=== PATIENT | female | born 1955 | race Caucasian/White ===

== ENCOUNTER 2017-10-25 18:00 | Inpatient (IN) | payer OTHER ==
[2017-10-25 18:58] LABS: ADD MAN DIFF? NO
[2017-10-25 18:59] LABS: ABNORMAL IP MESSAGE 1; BASOPHILS % 0.2 % (0.0-2.0); HEMATOCRIT 37.9 % (37.0-47.0); HEMOGLOBIN 12.5 g/dl (12.0-16.0); LYMPHOCYTES # 0.4 10^3/ul (0.8-2.9); LYMPHOCYTES % 3.2 % (15.0-51.0); MEAN CORPUSCULAR HEMOGLOBIN 31.3 pg (29.0-33.0); MEAN PLATELET VOLUME 10.2 fl (7.4-10.4); MONOCYTE # 0.6 10^3/ul (0.3-0.9); NEUTROPHIL # 10.2 10^3/ul (1.6-7.5); NEUTROPHILS % 91.2 % (39.0-77.0); PLATELET COUNT 212 10^3/UL (140-415); RED BLOOD COUNT 3.99 10^6/ul (4.20-5.40); RED CELL DISTRIBUTION WIDTH 12.2 % (11.5-14.5)
[2017-10-25 18:59] LABS: WHITE BLOOD COUNT 11.1 10^3/ul (4.8-10.8)
[2017-10-25] MEDS ORDERED: ONDANSETRON 4 MG INJ IV ×2 (19:00→20:30)
[2017-10-25 19:01] LABS: POSITIVE DIFF @See below
[2017-10-25 19:18] LABS: ALANINE AMINOTRANSFERASE 20 IU/L (13-69); ALBUMIN 4.3 g/dl (3.3-4.9); ALBUMIN/GLOBULIN RATIO 1.53; ALKALINE PHOSPHATASE 27 IU/L (42-121); ANION GAP 13 (8-16); ASPARTATE AMINO TRANSFERASE 21 IU/L (15-46); BILIRUBIN,INDIRECT 0.4 mg/dl (0-1.1); BILIRUBIN,TOTAL 0.4 mg/dl (0.2-1.3); BLOOD UREA NITROGEN 14 mg/dl (7-20); CALCIUM 8.8 mg/dl (8.4-10.2); CARBON DIOXIDE 26 mmol/L (21-31); CHLORIDE 107 mmol/L (97-110); CREATININE 0.52 mg/dl (0.44-1.00); GLUCOSE 165 mg/dl (70-220); POTASSIUM 3.6 mmol/L (3.5-5.1); SODIUM 142 mmol/L (135-144); TOTAL PROTEIN 7.1 g/dl (6.1-8.1)
[2017-10-25 19:20] LABS: INR 1.08; PARTIAL THROMBOPLASTIN TIME 23.1 Sec (25.0-35.0); PROTIME 14.1 Sec (11.9-14.9); PT RATIO 1.1
[2017-10-25] MEDS ORDERED: ACETAMINOPHEN 325 MG TAB PO ×2 (20:30)
[2017-10-25] MEDS: HEPARIN 5,000 UNIT/0.5 ML VIAL SC (21:50)
[2017-10-26] MEDS: morphine 2 MG INJ IV ×3 (02:37→11:00)
[2017-10-26 05:49] LABS: ADD MAN DIFF? NO
[2017-10-26 05:52] LABS: BASOPHILS % 0.2 % (0.0-2.0); HEMATOCRIT 37.3 % (37.0-47.0); LYMPHOCYTES % 11.7 % (15.0-51.0); MEAN CORPUSCULAR HEMOGLOBIN 30.5 pg (29.0-33.0); MEAN CORPUSCULAR HGB CONC 32.2 g/dl (32.0-37.0); MEAN CORPUSCULAR VOLUME 94.9 fl (82.0-101.0); MEAN PLATELET VOLUME 10.9 fl (7.4-10.4); MONOCYTE # 0.9 10^3/ul (0.3-0.9); MONOCYTES % 9.6 % (0.0-11.0); NEUTROPHIL # 6.9 10^3/ul (1.6-7.5); NEUTROPHILS % 78.2 % (39.0-77.0); PLATELET COUNT 188 10^3/UL (140-415); RED BLOOD COUNT 3.93 10^6/ul (4.20-5.40); RED CELL DISTRIBUTION WIDTH 12.4 % (11.5-14.5)
[2017-10-26 05:52] LABS: WHITE BLOOD COUNT 8.9 10^3/ul (4.8-10.8)
[2017-10-26 06:27] LABS: ALANINE AMINOTRANSFERASE 28 IU/L (13-69); ALBUMIN 4.1 g/dl (3.3-4.9); ALBUMIN/GLOBULIN RATIO 1.51; ALKALINE PHOSPHATASE 30 IU/L (42-121); ANION GAP 9 (8-16); ASPARTATE AMINO TRANSFERASE 23 IU/L (15-46); BILIRUBIN,INDIRECT 0.5 mg/dl (0-1.1); BILIRUBIN,TOTAL 0.5 mg/dl (0.2-1.3); BLOOD UREA NITROGEN 15 mg/dl (7-20); CALCIUM 8.6 mg/dl (8.4-10.2); CARBON DIOXIDE 28 mmol/L (21-31); CHLORIDE 109 mmol/L (97-110); CREATININE 0.45 mg/dl (0.44-1.00); GLUCOSE 111 mg/dl (70-220); POTASSIUM 3.7 mmol/L (3.5-5.1); SODIUM 142 mmol/L (135-144); TOTAL PROTEIN 6.8 g/dl (6.1-8.1)
[2017-10-26] MEDS: HEPARIN 5,000 UNIT/0.5 ML VIAL SC ×2 (08:31→20:43)
[2017-10-26] MEDS: CITALOPRAM 20 MG TAB PO (11:00)
[2017-10-26] MEDS: NAPROXEN 250 MG TAB PO ×2 (12:43→20:41)
[2017-10-26] MEDS: traZODone 50 MG TAB PO ×2 (12:43→20:39)
[2017-10-26] MEDS ORDERED: NAPROXEN 250 MG TAB PO (13:00)
[2017-10-26] MEDS: HYDROCODONE/APAP (5/325) TAB PO (15:14)
[2017-10-26] MEDS: ANASTROZOLE 1 MG TAB PO (15:27)
[2017-10-26] MEDS ORDERED: HALOPERIDOL 5 MG INJ IV (18:00)
[2017-10-26] MEDS: HALOPERIDOL 5 MG INJ IM (19:04)
[2017-10-26] MEDS ORDERED: morphine LIQ (10 MG/5 ML) CUP PO (23:30)
[2017-10-27 06:17] LABS: ADD MAN DIFF? NO
[2017-10-27 06:21] LABS: BASOPHILS % 0.3 % (0.0-2.0); EOSINOPHILS % 0.1 % (0.0-7.0); HEMATOCRIT 34.1 % (37.0-47.0); LYMPHOCYTES # 1.2 10^3/ul (0.8-2.9); LYMPHOCYTES % 16.2 % (15.0-51.0); MEAN CORPUSCULAR HEMOGLOBIN 30.1 pg (29.0-33.0); MEAN CORPUSCULAR HGB CONC 32.3 g/dl (32.0-37.0); MEAN CORPUSCULAR VOLUME 93.2 fl (82.0-101.0); MONOCYTE # 0.7 10^3/ul (0.3-0.9); MONOCYTES % 9.6 % (0.0-11.0); NEUTROPHIL # 5.3 10^3/ul (1.6-7.5); NEUTROPHILS % 73.4 % (39.0-77.0); PLATELET COUNT 159 10^3/UL (140-415); RED BLOOD COUNT 3.66 10^6/ul (4.20-5.40); RED CELL DISTRIBUTION WIDTH 12.4 % (11.5-14.5)
[2017-10-27 06:21] LABS: WHITE BLOOD COUNT 7.2 10^3/ul (4.8-10.8)
[2017-10-27 06:48] LABS: PHOSPHORUS 2.8 mg/dl (2.5-4.9)
[2017-10-27 06:48] LABS: MAGNESIUM 2.2 mg/dl (1.7-2.5)
[2017-10-27 06:52] LABS: ALANINE AMINOTRANSFERASE 21 IU/L (13-69); ALBUMIN 3.9 g/dl (3.3-4.9); ALBUMIN/GLOBULIN RATIO 1.44; ALKALINE PHOSPHATASE 33 IU/L (42-121); ANION GAP 9 (8-16); ASPARTATE AMINO TRANSFERASE 31 IU/L (15-46); BILIRUBIN,INDIRECT 0.6 mg/dl (0-1.1); BILIRUBIN,TOTAL 0.6 mg/dl (0.2-1.3); BLOOD UREA NITROGEN 19 mg/dl (7-20); CALCIUM 8.6 mg/dl (8.4-10.2); CARBON DIOXIDE 28 mmol/L (21-31); CHLORIDE 107 mmol/L (97-110); CREATININE 0.54 mg/dl (0.44-1.00); GLUCOSE 101 mg/dl (70-220); POTASSIUM 3.9 mmol/L (3.5-5.1); SODIUM 140 mmol/L (135-144); TOTAL PROTEIN 6.6 g/dl (6.1-8.1)
[2017-10-27] MEDS ORDERED: ONDANSETRON 4 MG INJ (07:00)
[2017-10-27] MEDS ORDERED: METOCLOPRAMIDE 10 MG INJ (07:00)
[2017-10-27] MEDS ORDERED: CEFAZOLIN 1 GM INJ (07:00)
[2017-10-27] MEDS: NAPROXEN 250 MG TAB PO ×3 (08:17→21:00)
[2017-10-27] MEDS: CALCIUM/VITAMIN D (500/200) TAB PO (08:18)
[2017-10-27] MEDS: CITALOPRAM 20 MG TAB PO (08:18)
[2017-10-27] MEDS: traZODone 50 MG TAB PO ×3 (08:18→21:00)
[2017-10-27] MEDS: ANASTROZOLE 1 MG TAB PO (08:24)
[2017-10-27] MEDS: HEPARIN 5,000 UNIT/0.5 ML VIAL SC ×2 (08:24→21:00)
[2017-10-27] MEDS: SOD CHLORIDE 0.9% 1,000 ML IV (17:41)
[2017-10-27] MEDS ORDERED: FENTAnyl 50 MCG/ML VIAL (19:16)
[2017-10-27] MEDS ORDERED: LIDOCAINE 2% (SDV) 5 ML INJ (19:17)
[2017-10-27] MEDS ORDERED: MIDAZOLAM 1 MG/ML 2 ML INJ (19:17)
[2017-10-27] MEDS ORDERED: PROPOFOL 20 ML (19:17)
[2017-10-27] MEDS ORDERED: ACETAMINOPHEN 1000MG/100ML IV 100 ML (19:18)
[2017-10-27] MEDS ORDERED: DEXAMETHASONE 4 MG/ML 1 ML INJ (19:21)
[2017-10-27] MEDS ORDERED: hydrALAzine 20 MG INJ IV (20:00)
[2017-10-27] MEDS ORDERED: DIPHENHYDRAMINE 50 MG INJ IV ×2 (20:00→22:00)
[2017-10-27] MEDS ORDERED: HYDROmorphONE 1 MG/5 ML IV SYRINGE IV ×3 (20:00)
[2017-10-27] MEDS ORDERED: FENTAnyl 50 MCG/ML VIAL IV ×2 (20:00)
[2017-10-27] MEDS ORDERED: LABETALOL HCL 20MG INJ IV (20:00)
[2017-10-27] MEDS ORDERED: ONDANSETRON 4 MG INJ IV ×2 (20:00→22:00)
[2017-10-27] MEDS ORDERED: IPRATROPIUM (NEB) 0.5 MG/2.5 ML AMP HHN (20:00)
[2017-10-27] MEDS ORDERED: morphine SULFATE/PF (10 MG/10 ML) INJ (20:44)
[2017-10-27] MEDS ORDERED: BUPIVACAINE 0.75%/DEXT (SPINAL) 2 ML INJ (20:44)
[2017-10-27] MEDS ORDERED: ZOLPIDEM 5 MG TAB PO (22:00)
[2017-10-27] MEDS ORDERED: HYDROmorphONE 0.5 MG/0.5 ML SYG IV ×2 (22:00)
[2017-10-27] MEDS ORDERED: NALOXONE (0.4 MG/ML) INJ IV (22:00)
[2017-10-27] MEDS: POLYMYXIN/BACITRACIN 1L IRRIG (22:11)
[2017-10-27] MEDS ORDERED: HYDROCODONE/APAP (5/325) TAB PO (23:30)
[2017-10-27] MEDS ORDERED: morphine 2 MG INJ IV (23:30)
[2017-10-27] MEDS ORDERED: NACL 0.9% 3 ML SYG IV (23:30)
[2017-10-27 23:50] LABS: ADD MAN DIFF? NO
[2017-10-27 23:56] LABS: WHITE BLOOD COUNT 7.3 10^3/ul (4.8-10.8)
[2017-10-27 23:56] LABS: BASOPHILS % 0.1 % (0.0-2.0); EOSINOPHILS % 0.1 % (0.0-7.0); HEMATOCRIT 30.8 % (37.0-47.0); HEMOGLOBIN 10.1 g/dl (12.0-16.0); LYMPHOCYTES # 0.8 10^3/ul (0.8-2.9); LYMPHOCYTES % 10.3 % (15.0-51.0); MEAN CORPUSCULAR HGB CONC 32.8 g/dl (32.0-37.0); MEAN CORPUSCULAR VOLUME 97.5 fl (82.0-101.0); MEAN PLATELET VOLUME 10.3 fl (7.4-10.4); MONOCYTE # 0.4 10^3/ul (0.3-0.9); MONOCYTES % 5.1 % (0.0-11.0); NEUTROPHIL # 6.1 10^3/ul (1.6-7.5); PLATELET COUNT 140 10^3/UL (140-415); RED BLOOD COUNT 3.16 10^6/ul (4.20-5.40); RED CELL DISTRIBUTION WIDTH 12.2 % (11.5-14.5)
[2017-10-28] MEDS: DEXTROSE 5%-LR 1,000 ML IV ×2 (00:35→11:46)
[2017-10-28] MEDS: SOD CHLORIDE 0.9% 1,000 ML IV ×3 (03:30→23:30)
[2017-10-28 06:41] LABS: ADD MAN DIFF? NO
[2017-10-28 06:44] LABS: ABNORMAL IP MESSAGE 1; BASOPHILS % 0.1 % (0.0-2.0); HEMATOCRIT 29.2 % (37.0-47.0); HEMOGLOBIN 9.5 g/dl (12.0-16.0); LYMPHOCYTES # 0.2 10^3/ul (0.8-2.9); LYMPHOCYTES % 2.2 % (15.0-51.0); MEAN CORPUSCULAR HEMOGLOBIN 30.7 pg (29.0-33.0); MEAN CORPUSCULAR HGB CONC 32.5 g/dl (32.0-37.0); MEAN CORPUSCULAR VOLUME 94.5 fl (82.0-101.0); MEAN PLATELET VOLUME 10.9 fl (7.4-10.4); MONOCYTE # 0.5 10^3/ul (0.3-0.9); MONOCYTES % 6.5 % (0.0-11.0); NEUTROPHIL # 6.3 10^3/ul (1.6-7.5); NEUTROPHILS % 90.8 % (39.0-77.0); PLATELET COUNT 154 10^3/UL (140-415); RED BLOOD COUNT 3.09 10^6/ul (4.20-5.40)
[2017-10-28 06:54] LABS: POSITIVE DIFF @See below
[2017-10-28 07:15] LABS: ANION GAP 9 (8-16); BLOOD UREA NITROGEN 16 mg/dl (7-20); CALCIUM 8.5 mg/dl (8.4-10.2); CARBON DIOXIDE 27 mmol/L (21-31); CHLORIDE 107 mmol/L (97-110); CREATININE 0.46 mg/dl (0.44-1.00); GLUCOSE 175 mg/dl (70-220); POTASSIUM 3.6 mmol/L (3.5-5.1); SODIUM 139 mmol/L (135-144)
[2017-10-28 07:23] LABS: PHOSPHORUS 2.8 mg/dl (2.5-4.9)
[2017-10-28 07:23] LABS: MAGNESIUM 1.6 mg/dl (1.7-2.5)
[2017-10-28] MEDS: CEFAZOLIN 1 GM/50 ML (PMX) 50 ML IVPB ×3 (08:24→15:26)
[2017-10-28] MEDS: traZODone 50 MG TAB PO ×3 (08:25→20:53)
[2017-10-28] MEDS: ENOXAPARIN 40 MG/0.4 ML SYG SC (08:25)
[2017-10-28] MEDS: HEPARIN 5,000 UNIT/0.5 ML VIAL SC (08:25)
[2017-10-28] MEDS: NAPROXEN 250 MG TAB PO ×3 (08:25→20:53)
[2017-10-28] MEDS: CITALOPRAM 20 MG TAB PO (08:25)
[2017-10-28] MEDS: CALCIUM/VITAMIN D (500/200) TAB PO (08:25)
[2017-10-28] MEDS: ANASTROZOLE 1 MG TAB PO (08:32)
[2017-10-28] MEDS: MAGNESIUM SULFATE 2 GM/50 ML 50 ML IVPB (16:17)
[2017-10-29] MEDS: SOD CHLORIDE 0.9% 1,000 ML IV ×2 (01:21→10:52)
[2017-10-29 05:26] LABS: ADD MAN DIFF? NO
[2017-10-29 05:27] LABS: WHITE BLOOD COUNT 4.7 10^3/ul (4.8-10.8)
[2017-10-29 05:27] LABS: BASOPHILS % 0.4 % (0.0-2.0); EOSINOPHILS % 0.6 % (0.0-7.0); HEMATOCRIT 27.2 % (37.0-47.0); HEMOGLOBIN 8.6 g/dl (12.0-16.0); LYMPHOCYTES # 0.9 10^3/ul (0.8-2.9); MEAN CORPUSCULAR HEMOGLOBIN 30.2 pg (29.0-33.0); MEAN CORPUSCULAR HGB CONC 31.6 g/dl (32.0-37.0); MEAN CORPUSCULAR VOLUME 95.4 fl (82.0-101.0); MONOCYTE # 0.4 10^3/ul (0.3-0.9); MONOCYTES % 9.4 % (0.0-11.0); NEUTROPHIL # 3.3 10^3/ul (1.6-7.5); NEUTROPHILS % 70.4 % (39.0-77.0); PLATELET COUNT 149 10^3/UL (140-415); RED BLOOD COUNT 2.85 10^6/ul (4.20-5.40); RED CELL DISTRIBUTION WIDTH 12.4 % (11.5-14.5)
[2017-10-29 05:47] LABS: ANION GAP 5 (8-16); BLOOD UREA NITROGEN 12 mg/dl (7-20); CALCIUM 7.6 mg/dl (8.4-10.2); CARBON DIOXIDE 27 mmol/L (21-31); CHLORIDE 115 mmol/L (97-110); CREATININE 0.46 mg/dl (0.44-1.00); GLUCOSE 89 mg/dl (70-220); POTASSIUM 3.9 mmol/L (3.5-5.1); SODIUM 143 mmol/L (135-144)
[2017-10-29 05:50] LABS: MAGNESIUM 2.3 mg/dl (1.7-2.5)
[2017-10-29] MEDS: CITALOPRAM 20 MG TAB PO (08:09)
[2017-10-29] MEDS: traZODone 50 MG TAB PO ×2 (08:09→12:21)
[2017-10-29] MEDS: NAPROXEN 250 MG TAB PO ×2 (08:09→12:21)
[2017-10-29] MEDS: CALCIUM/VITAMIN D (500/200) TAB PO (08:09)
[2017-10-29] MEDS: ANASTROZOLE 1 MG TAB PO (08:11)
[2017-10-29] MEDS: ENOXAPARIN 40 MG/0.4 ML SYG SC (08:11)
[2017-10-29] MEDS: POLYETHYLENE GLYCOL 17 GM PACKET PO (12:21)
[2017-10-29] MEDS: POTASSIUM PHOSPHATE 15 MM in SOD CHLORIDE 0.9% 250 ML IVPB (13:35)
== END 2017-10-29 17:50 | DRG 482 ==
LOC: MS2 18:00
PROC: 0QS606Z Reposition Right Upper Femur with Intramedullary Internal Fixation Device, Open Approach (ICD-10-PCS; principal; 2017-10-27 20:00)
DX: S72.141A Displaced intertrochanteric fracture of right femur, initial encounter for closed fracture (principal); F41.9 Anxiety disorder, unspecified; D64.9 Anemia, unspecified; S72.21XA Displaced subtrochanteric fracture of right femur, initial encounter for closed fracture; C50.912 Malignant neoplasm of unspecified site of left female breast; W18.39XA Other fall on same level, initial encounter; Y92.410 Unspecified street and highway as the place of occurrence of the external cause
CPT/HCPCS: 71045; 72192; 73500; 73530; 73700; 80048; 80053; 83735; 84100; 85025; 85610; 85730; 93005; 93306; 97110; 97116; 97163; 97530

== ENCOUNTER 2018-05-26 11:23 | Inpatient (IN) | payer OTHER ==
[2018-05-26] MEDS ORDERED: NEOSTIGMINE 3 MG/3 ML SYRINGE (13:26)
[2018-05-26] MEDS ORDERED: GLYCOPYRROLATE 0.4 MG INJ (13:26)
[2018-05-26] MEDS ORDERED: ROCURONIUM 50 MG INJ (13:26)
[2018-05-26] MEDS ORDERED: SUCCINYLCHOLINE CHLORIDE 100 MG/5 ML SYG IV (13:26)
[2018-05-26] MEDS ORDERED: PROPOFOL 20 ML (13:26)
[2018-05-26] MEDS ORDERED: ONDANSETRON 4 MG INJ (13:27)
[2018-05-26] MEDS ORDERED: MIDAZOLAM 1 MG/ML 2 ML INJ (13:27)
[2018-05-26] MEDS ORDERED: FENTAnyl 50 MCG/ML VIAL (13:27)
[2018-05-26] MEDS ORDERED: METOCLOPRAMIDE 10 MG INJ (13:27)
[2018-05-26] MEDS ORDERED: morphine 10 MG INJ (13:44)
[2018-05-26] MEDS ORDERED: CEFAZOLIN 1 GM INJ (14:15)
[2018-05-26] MEDS ORDERED: FENTAnyl 50 MCG/ML VIAL IV (14:30)
[2018-05-26] MEDS ORDERED: METOCLOPRAMIDE 10 MG INJ IV (14:30)
[2018-05-26] MEDS ORDERED: LABETALOL HCL 20MG INJ IV (14:30)
[2018-05-26] MEDS ORDERED: MEPERIDINE 25 MG INJ IV (14:30)
[2018-05-26] MEDS ORDERED: OXYCODONE/ACETAMINOPHEN (5/325) TAB PO (14:30)
[2018-05-26] MEDS ORDERED: morphine (1 MG/ML) 10ML SYRINGE IV (14:30)
[2018-05-26] MEDS ORDERED: HYDROmorphONE 1 MG/5 ML IV SYRINGE IV (14:30)
[2018-05-26] MEDS ORDERED: ONDANSETRON 4 MG INJ IV ×2 (14:30→18:30)
[2018-05-26] MEDS ORDERED: DIPHENHYDRAMINE 50 MG INJ IV (14:30)
[2018-05-26] MEDS ORDERED: ALBUTEROL 0.083% (NEB) 2.5 MG/3 ML AMP HHN (14:30)
[2018-05-26] MEDS ORDERED: SUGAMMADEX SODIUM 200 MG/2 ML VIAL IV (15:06)
[2018-05-26] MEDS ORDERED: ALBUTEROL 0.083% (NEB) 2.5 MG/3 ML AMP (15:12)
[2018-05-26] MEDS ORDERED: HYDROCODONE/APAP (5/325) TAB PO ×2 (15:30→18:30)
[2018-05-26] MEDS ORDERED: CEFAZOLIN 2 GM/50 ML (PMX) 50 ML IVPB (15:30)
[2018-05-26] MEDS ORDERED: NACL 0.9% 3 ML SYG IV ×2 (15:30→18:30)
[2018-05-26] MEDS ORDERED: morphine 2 MG INJ IV (15:30)
[2018-05-26] MEDS: hydrALAzine 20 MG INJ IV (16:26)
[2018-05-26] MEDS: SENNA TAB PO (21:30)
[2018-05-26] MEDS: CEFAZOLIN 2 GM/50 ML (PMX) 50 ML IVPB (21:30)
[2018-05-26] MEDS: ESCITALOPRAM 10 MG TAB PO (21:31)
[2018-05-26] MEDS: OXYBUTYNIN 5 MG TAB PO (21:31)
[2018-05-26] MEDS: CALCIUM/VITAMIN D (500/200) TAB PO (21:31)
[2018-05-27 05:11] LABS: ADD MAN DIFF? NO
[2018-05-27 05:15] LABS: BASOPHILS % 0.3 % (0.0-2.0); EOSINOPHILS % 0.1 % (0.0-7.0); HEMATOCRIT 37.9 % (37.0-47.0); LYMPHOCYTES % 14.6 % (15.0-51.0); MEAN CORPUSCULAR HEMOGLOBIN 29.5 pg (29.0-33.0); MEAN CORPUSCULAR HGB CONC 31.7 g/dl (32.0-37.0); MEAN CORPUSCULAR VOLUME 93.1 fl (82.0-101.0); MEAN PLATELET VOLUME 10.8 fl (7.4-10.4); MONOCYTE # 0.7 10^3/ul (0.3-0.9); MONOCYTES % 10.5 % (0.0-11.0); NEUTROPHILS % 74.2 % (39.0-77.0); PLATELET COUNT 244 10^3/UL (140-415); RED BLOOD COUNT 4.07 10^6/ul (4.20-5.40); RED CELL DISTRIBUTION WIDTH 12.9 % (11.5-14.5)
[2018-05-27 05:15] LABS: WHITE BLOOD COUNT 6.7 10^3/ul (4.8-10.8)
[2018-05-27] MEDS: CEFAZOLIN 2 GM/50 ML (PMX) 50 ML IVPB ×2 (05:27→13:50)
[2018-05-27 05:28] LABS: HEMOGLOBIN A1C 5.1 % (0-5.9)
[2018-05-27 06:02] LABS: ALANINE AMINOTRANSFERASE 21 IU/L (13-69); ALBUMIN 3.9 g/dl (3.3-4.9); ALKALINE PHOSPHATASE 41 IU/L (42-121); ANION GAP 8 (5-13); ASPARTATE AMINO TRANSFERASE 32 IU/L (15-46); BILIRUBIN,INDIRECT 0.3 mg/dl (0-1.1); BILIRUBIN,TOTAL 0.3 mg/dl (0.2-1.3); BLOOD UREA NITROGEN 19 mg/dl (7-20); CALCIUM 9.4 mg/dl (8.4-10.2); CARBON DIOXIDE 29 mmol/L (21-31); CHLORIDE 103 mmol/L (97-110); CREATININE 0.51 mg/dl (0.44-1.00); Estimated GFR > 60 mL/min (>60); GLUCOSE 104 mg/dl (70-220); PHOSPHORUS 4.5 mg/dl (2.5-4.9); POTASSIUM 3.9 mmol/L (3.5-5.1); SODIUM 140 mmol/L (135-144); TOTAL PROTEIN 6.9 g/dl (6.1-8.1)
[2018-05-27 06:25] LABS: THYROID STIMULATING HORMONE 0.954 MIU/L (0.465-4.680)
[2018-05-27] MEDS: CALCIUM/VITAMIN D (500/200) TAB PO (08:16)
[2018-05-27] MEDS: ESCITALOPRAM 10 MG TAB PO (08:17)
[2018-05-27] MEDS: SENNA TAB PO (08:18)
[2018-05-27] MEDS: OXYBUTYNIN 5 MG TAB PO (08:18)
[2018-05-27] MEDS: ENOXAPARIN 40 MG/0.4 ML SYG SC (08:23)
[2018-05-27] MEDS: ANASTROZOLE 1 MG TAB PO (11:21)
== END 2018-05-27 15:10 | disposition home or self-care (01) | DRG 481 ==
LOC: REC 11:23 → MS1 18:43
PROC: 0SP904Z Removal of Internal Fixation Device from Right Hip Joint, Open Approach (ICD-10-PCS; principal; 2018-05-26 13:00)
DX: T84.89XA Other specified complication of internal orthopedic prosthetic devices, implants and grafts, initial encounter (principal); C79.81 Secondary malignant neoplasm of breast; Y79.8 Miscellaneous orthopedic devices associated with adverse incidents, not elsewhere classified; F32.9 Major depressive disorder, single episode, unspecified; F41.9 Anxiety disorder, unspecified; C80.1 Malignant (primary) neoplasm, unspecified; Z87.81 Personal history of (healed) traumatic fracture
CPT/HCPCS: 73500; 73700; 80053; 83036; 83735; 84100; 84443; 85025; 88300; 97116; 97161; 97530